=== PATIENT | female | born 1995 | race Caucasian/White ===

== ENCOUNTER 2016-08-11 21:12 | Emergency (ER) | payer MEDICAID ==
--- NOTE | 2016-08-25 21:14 | ER ---
ADMIT: 08/11/2016 RM/LOC: ER [facility] MR#: [id number] [facility] [address] [place], [place] [address] [place] [address] [address] Emergency Room Report SEX: F AGE: 21 : 1995 DATE: 08/11/2016 ADDENDUM: CHIEF COMPLAINT: Abdominal pain. HISTORY OF PRESENT ILLNESS: This is a 21-year-old female, who has had epigastric abdominal pain that started a couple days ago. CMP is normal except for potassium of 3.5, albumin 3.4. CBC is normal except for hemoglobin of 11.6, hematocrit is 34.0. Urine shows trace of blood, no infection. heart tones were found at a rate of 160, all of her pain is both upper quadrants. I told her to continue to push fluids, use Tylenol for pain, follow up with her primary care physician if symptoms continue. CARLINE Ambrocio / Fito Portillo MD / roxannal JOB #: [id number] CC: Fito Portillo MD, Attending Physician Rachael Carter MD, Family Physician
[2017-02-10] MEDS ORDERED: COLACE-DPS100 MG PO (14:41)
[2017-02-10] MEDS ORDERED: PRENATAL VITAM1 EAC6 PO (14:41)
[2017-02-10] MEDS ORDERED: MOTRIN-DPS800 MG PO (14:41)
[2017-02-10] MEDS ORDERED: NIPPLECREAM TP (14:42)
[2017-02-10] MEDS ORDERED: TYLENOL EXTRA500 M1 PO (14:42)
== END 2016-08-12 00:07 | disposition home or self-care (01) ==
LOC: ER 21:12
DX: R10.11 Right upper quadrant pain (principal); R10.12 Left upper quadrant pain; F17.210 Nicotine dependence, cigarettes, uncomplicated; Z79.899 Other long term (current) drug therapy

== ENCOUNTER 2016-11-05 13:00 | Outpatient (CLI) | payer MEDICAID ==
[2017-02-10] MEDS ORDERED: COLACE-DPS100 MG PO (14:41)
[2017-02-10] MEDS ORDERED: PRENATAL VITAM1 EAC6 PO (14:41)
[2017-02-10] MEDS ORDERED: MOTRIN-DPS800 MG PO (14:41)
[2017-02-10] MEDS ORDERED: TYLENOL EXTRA500 M1 PO (14:42)
[2017-02-10] MEDS ORDERED: NIPPLECREAM TP (14:42)
== END 2016-11-05 15:00 | disposition home or self-care (01) ==
LOC: 2LDRP 13:00 → BC 13:00
DX: O99.89 Other specified diseases and conditions complicating pregnancy, childbirth and the puerperium (principal); R10.9 Unspecified abdominal pain

== ENCOUNTER 2017-01-28 11:20 | Outpatient (CLI) | payer MEDICAID | END 2017-01-28 12:24 | disposition home or self-care (01) | DX: O42.92 Full-term premature rupture of membranes, unspecified as to length of time between rupture and onset of labor (principal); Z3A.37 37 weeks gestation of pregnancy ==

== ENCOUNTER 2017-02-03 13:40 | Outpatient (CLI) | payer MEDICAID | END 2017-02-03 15:59 | disposition home or self-care (01) | LOC: 2LDRP 13:40 → BC 13:40 | DX: O47.1 False labor at or after 37 completed weeks of gestation (principal); Z3A.38 38 weeks gestation of pregnancy ==

== ENCOUNTER 2017-02-04 20:45 | Outpatient (CLI) | payer MEDICAID | END 2017-02-04 23:15 | disposition home or self-care (01) | LOC: BC 20:45 | DX: O99.89 Other specified diseases and conditions complicating pregnancy, childbirth and the puerperium (principal); R10.2 Pelvic and perineal pain; Z3A.38 38 weeks gestation of pregnancy ==

== ENCOUNTER 2017-02-07 10:00 | Inpatient (IN) | payer MEDICAID ==
[~2017-02-07] VITALS: Ht 152.4 cm; Wt 85.3 kg
--- NOTE | ~2017-02-07 | OR ---
ADMIT: 02/07/2017 RM/LOC: 219 [facility] MR#: [id number] [address] [address] [place] [address] Operative/Delivery Room Report SEX: F AGE: 21 : 1995 SURGERY DATE: 02/07/2017 SURGEON: Margarette Senior MD PREOPERATIVE DIAGNOSES: 1. Intrauterine at 38 and 4/7 weeks' gestation. 2. Active labor. 3. Group B Streptococcus negative. POSTOPERATIVE DIAGNOSES: 1. Intrauterine at 38 and 4/7 weeks' gestation. 2. Active labor. 3. Group B Streptococcus negative. 4. Delivery of a viable male infant at 2209 hours weighing 7 pounds 0.5 ounces with scores of 8 at 1 minute, 9 at 5 minutes. PROCEDURE: Spontaneous vaginal delivery. ANESTHESIA: Epidural. COMPLICATIONS: None. ESTIMATED BLOOD LOSS: 100 mL. FLUIDS: Crystalloid. INDICATIONS: This is a 21-year-old female, 4, para 2-0-1-2, who presented to the [facility] Center with an intrauterine at 38 and 4/7 weeks' gestation with complaints of spontaneous rupture of membranes. AmniSure did confirm rupture of membranes. She was maritza irregularly. She was started on antibiotics for GBS prophylaxis. She did require Pitocin augmentation. She requested and received an epidural for pain control. She progressed to be complete in a satisfactory fashion at which time, she was allowed to push bringing the infant's vertex to the perineum. PROCEDURE IN DETAIL: The patient was noted to be complete. She was placed in the dorsal lithotomy position and prepped and draped in usual sterile fashion. She was asked to push and delivered the infant's vertex in the left occiput anterior position over the midline. Nuchal cord was checked, none was noted. ADMIT: 02/07/2017 RM/LOC: 219 [facility] MR#: [id number] [address] [address] [place] [address] Operative/Delivery Room Report SEX: F AGE: 21 : 1995 The anterior shoulder delivered easily followed by the posterior shoulder and the remainder of the infant. The did have spontaneous cry and movement of all 4 extremities. He was passed to the mother's abdomen where nursing personnel were in attendance. After 1 minute, the cord was clamped x2 and cut by the father. Cord blood was obtained. A 30 units of Pitocin were infused with IV fluids to help firm the uterus. The placenta delivered intact spontaneously. The uterus was not explored. Examination of the cervix did not reveal any lacerations. Examination of the vagina and perineum did not reveal any lacerations. The patient tolerated the procedure well. Sponge, needle, and instrument counts were correct. She is now recovering in her Labor and Delivery suite with her . Margarette Senior MD/ alejandro JOB #: [id number] CC: Rachael Carter MD, Attending Physician Rachael Carter MD, Family Physician
--- NOTE | ~2017-02-07 | HP ---
ADMIT: 02/07/2017 RM/LOC: 219 [facility] MR#: [id number] [address] [address] [place] [address] History and Physical SEX: F AGE: 21 : 1995 DATE OF SERVICE: CHIEF COMPLAINT: Rupture of membranes. HISTORY OF PRESENT ILLNESS: This is a 21-year-old female, 4, para 2-0- 1-2, who presented to the Birthing Center with an intrauterine at 38 and 4/7 weeks' gestation with complaints of leaking fluid. Her estimated date of confinement is 02/17/2017. This is based off last menstrual period and consistent with a 10-week ultrasound. Her has been complicated by tobacco abuse and anemia. At the time of initial evaluation, AmniSure did confirm rupture of membranes. PAST OBSTETRICAL HISTORY: She has had 2 term spontaneous vaginal deliveries. LABORATORY DATA: Blood type is O positive. Antibody screen negative. HIV negative. Rubella immune. RPR nonreactive. Hepatitis B surface antigen negative. Pap was normal. Gonorrhea and Chlamydia negative. Quad screen negative. One-hour glucose tolerance test is 100. Group B strep is positive. PAST MEDICAL HISTORY: She denies hypertension, diabetes, asthma, kidney, or thyroid disease. PAST SURGICAL HISTORY: Tonsillectomy and adenoidectomy, ear surgery in 2009. SOCIAL HISTORY: She is single. She does smoke approximately half pack a day. She denies any alcohol or drug use. ALLERGIES: NO KNOWN DRUG ALLERGIES. CURRENT MEDICATIONS: 1. vitamins. 2. Iron supplement. PHYSICAL EXAMINATION: VITAL SIGNS: Temperature is 97.6, blood pressure 117/102, pulse 72, respirations 15. GENERAL: This is a pleasant female, in no acute distress. HEENT: Head is normocephalic and atraumatic. Pupils are equal, round, react to light and accommodation. Extraocular muscles are intact. NECK: Supple. HEART: Regular rate and rhythm. LUNGS: Clear bilaterally. ABDOMEN: Soft, nontender, nondistended. Gravid. EXTREMITIES: Nontender. heart tones are 130s baseline, moderate variability is present, 15 x 15 accelerations are present, decelerations are absent, uterine contractions are ADMIT: 02/07/2017 RM/LOC: 219 [facility] MR#: [id number] [address] [address] [place] [address] History and Physical SEX: F AGE: 21 : 1995 irregular. Her cervix is 5 cm, 80%, -2 station. The fetus is vertex. IMPRESSION: 1. This is a 21-year-old female, 4, para 2-0-1-2 with an intrauterine at 38 and 4/7 weeks' gestation. 2. Premature rupture of membranes at term. 3. Group B Streptococcus positive. PLAN: At this time, we will admit the patient for labor. We will start antibiotics for GBS prophylaxis. We will also augment as needed, treat her pain as she desires, and anticipate a spontaneous vaginal delivery. Margarette Senior MD/ alejandro JOB #: [id number] CC: Rachael Carter MD, Attending Physician Rachael Carter MD, Family Physician
[2017-02-10] MEDS ORDERED: COLACE-DPS100 MG PO (14:41)
[2017-02-10] MEDS ORDERED: MOTRIN-DPS800 MG PO (14:41)
[2017-02-10] MEDS ORDERED: PRENATAL VITAM1 EAC6 PO (14:41)
[2017-02-10] MEDS ORDERED: TYLENOL EXTRA500 M1 PO (14:42)
[2017-02-10] MEDS ORDERED: NIPPLECREAM TP (14:42)
== END 2017-02-09 11:06 | disposition home or self-care (01) | DRG 775 ==
LOC: BC 10:00 → 2LDRP 10:00 → BC 02-17 13:50
PROVIDERS: ADMIT Obstetrics & Gynecology
PROC: 10E0XZZ Delivery of Products of Conception, External Approach (ICD-10-PCS; principal; 2017-02-07)
PROC: 3E0234Z Introduction of Serum, Toxoid and Vaccine into Muscle, Percutaneous Approach (ICD-10-PCS; 2017-02-09)
DX: O42.02 Full-term premature rupture of membranes, onset of labor within 24 hours of rupture (principal); D64.9 Anemia, unspecified; O99.824 Streptococcus B carrier state complicating childbirth; O99.02 Anemia complicating childbirth; O99.334 Smoking (tobacco) complicating childbirth; F17.210 Nicotine dependence, cigarettes, uncomplicated; Z23 Encounter for immunization; Z3A.38 38 weeks gestation of pregnancy; Z37.0 Single live birth